=== PATIENT | female | born 2000 | race Caucasian/White ===

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

== ENCOUNTER → 2019-08-13 07:00 | Observation (INO) ==
[2019-08-13 06:10] LABS: Bilirubin,Urine Small (Negative); Blood,Urine Moderate (Negative); Clarity,Urine Turbid (Clear); Color,Urine Orange (Yellow); Glucose,Urine (UA) Normal (Normal); Ketones,Urine 40 mg/dL (Negative); Leukocyte Esterase,Urine Moderate (Negative); Nitrite,Urine Positive (Negative); PH,Urine 6.5 pH Units (5.0-8.0); Protein,Urine 30 mg/dL (Neg-Trace); Specific Gravity,Urine 1.028 (1.010-1.025); Urobilinogen,Urine Normal (Normal)
[2019-08-13 06:12] LABS: Hyaline Casts,Urine Moderate per lpf (None-Few); RBC,Urine 30-50 per hpf (0-3); Squamous Epithelial Cell,Urine Many per lpf (None-Few); WBC,Urine 50-100 per hpf (0-3)
[2019-08-13 06:31] LABS: Bacteria,Urine Many per hpf (None-Few)
== END | disposition home or self-care (01) ==
LOC: 1NENULAB
PROVIDERS: ADMIT Advanced Practice Midwife; ATTEND Advanced Practice Midwife

== ENCOUNTER → 2019-09-10 14:38 | Observation (INO) ==
[2019-09-10 09:14] LABS: Bilirubin,Urine Negative (Negative); Blood,Urine Trace (Negative); Clarity,Urine Cloudy (Clear); Color,Urine Yellow (Yellow); Glucose,Urine (UA) Normal (Normal); Ketones,Urine Negative (Negative); Leukocyte Esterase,Urine Large (Negative); Nitrite,Urine Positive (Negative); Protein,Urine Negative (Neg-Trace); Specific Gravity,Urine 1.019 (1.010-1.025); Urobilinogen,Urine Normal (Normal)
[2019-09-10 09:16] LABS: Bacteria,Urine Many per hpf (None-Few); Hyaline Casts,Urine None Seen per lpf (None-Few); Squamous Epithelial Cell,Urine Many per lpf (None-Few); WBC,Urine 15-30 per hpf (0-3)
[2019-09-10 09:30] LABS: RBC,Urine 0-3 per hpf (0-3)
[2019-09-10 10:20] LABS: Basophils # 0.1 K/mcL (0.0-0.2); Basophils % 0.2 %; Eosinophils # 0.3 K/mcL (0.0-0.6); Eosinophils % 1.2 %; Hematocrit 44.1 % (35.3-44.9); Hemoglobin 14.5 g/dL (11.5-15.4); Immature Granulocytes % 0.7 % (0-4); Lymphocytes # 2.6 K/mcL (0.6-4.6); Lymphocytes % 11.2 %; Mean Corpuscular HGB Conc 32.9 g/dL (31.6-35.5); Mean Corpuscular Hemoglobin 31.1 pg (28.0-33.3); Mean Corpuscular Volume 94.6 fL (83.0-100.0); Mean Platelet Volume 10.5 fL (9.4-12.4); Monocytes # 0.9 K/mcL (0.0-1.3); Monocytes % 3.7 %; Neutrophils # 19.1 K/mcL (1.6-8.9); Platelet Count 380 K/mcL (140-400); Red Blood Count 4.66 M/mcL (3.82-4.97); Red Cell Distribution Width 13.2 % (11.5-14.5)
[2019-09-10 10:28] LABS: Protein/Creatinine Ratio,Urine 0.23 mg/mg (0.00-0.20)
[2019-09-10 10:43] LABS: Alanine Aminotransferase 17 Units/L (7-52); Amylase 37 Units/L (29-103); Aspartate Amino Transferase 15 Units/L (13-39); BUN/Creatinine Ratio 15 (6-26); Blood Urea Nitrogen 7 mg/dL (6-20); Lactate Dehydrogenase 130 Units/L (140-271); Lipase 6 Units/L (11-82); Uric Acid 3.8 mg/dL (2.3-7.6); eGFR For African Americans > 60 (> 60); eGFR For Non-African Americans > 60 (> 60)
[~2019-09-10 14:38] MED LIST changes: +*HR* Promethazine 25 MG/ML VIAL IVP PRN; -Famotidine 20 MG/2 ML VIAL IVP PRN; -Lidocaine 1% 20 ML MDV INFILT PRN; -Naloxone 0.4 MG/ML INJ IVP PRN; +Ringers Solution, Lactated 1,000 ML IVC ONE; +Ringers Solution, Lactated 1,000 ML IVC SCH; +Ringers Solution, Lactated 1,000 ML ONE; +cefTRIAXone 1,000 MG in 0.9 % Sodium Chloride Mini Bag 100 ML IVPB ONE
== END | disposition home or self-care (01) ==
LOC: 1NENULAB
PROVIDERS: ADMIT Advanced Practice Midwife; ATTEND Advanced Practice Midwife

== ENCOUNTER 2019-10-13 07:26 | Inpatient (IN) ==
[2019-10-13] MEDS ORDERED: Metoclopramide 10 MG/2 ML VIAL IVP PRN (07:43)
[2019-10-13] MEDS ORDERED: Naloxone 0.4 MG/ML INJ IVP PRN (07:43)
[2019-10-13] MEDS ORDERED: Ondansetron 4 MG/2 ML VIAL IVP PRN (07:43)
[2019-10-13] MEDS ORDERED: *HR* FentaNYL (PF) 100 MCG/2 ML VIAL IVP PRN (07:43)
[2019-10-13] MEDS ORDERED: Famotidine 20 MG/2 ML VIAL IVP PRN (07:43)
[2019-10-13 09:19] LABS: Basophils % 0.3 %; Eosinophils # 0.3 K/mcL (0.0-0.6); Eosinophils % 2.1 %; Hematocrit 35.4 % (35.3-44.9); Hemoglobin 11.8 g/dL (11.5-15.4); Immature Granulocytes % 0.6 % (0-4); Lymphocytes # 3.2 K/mcL (0.6-4.6); Lymphocytes % 22.5 %; Mean Corpuscular HGB Conc 33.3 g/dL (31.6-35.5); Mean Corpuscular Hemoglobin 31.4 pg (28.0-33.3); Mean Corpuscular Volume 94.1 fL (83.0-100.0); Mean Platelet Volume 10.3 fL (9.4-12.4); Monocytes # 0.6 K/mcL (0.0-1.3); Monocytes % 4.3 %; Neutrophils # 9.8 K/mcL (1.6-8.9); Platelet Count 345 K/mcL (140-400); Red Blood Count 3.76 M/mcL (3.82-4.97); Red Cell Distribution Width 13.2 % (11.5-14.5); Segmented Neutrophils % 70.2 %
[2019-10-13] MEDS ORDERED: miSOPROStoL 25 MCG TABLET PO PRN (09:44)
[2019-10-13] MEDS ORDERED: Oxytocin 20 units/ LR 1000 mL 20 UNIT/1,000 ML BAG IVC SCH ×2 (09:45→22:52)
[2019-10-13 09:46] LABS: Amphetamine Screen,Urine Negative ng/mL (Cutoff=1000); Barbiturate Screen,Urine Negative ng/mL (Cutoff=200); Benzodiazepines Screen,Urine Negative ng/mL (Cutoff=200); Cannabinoid Screen,Urine Positive ng/mL (Cutoff = 50); Cocaine Screen,Urine Negative ng/mL (Cutoff= 300); Opiate Screen,Urine Negative ng/mL (Cutoff=300); Phencyclidine Screen,Urine Negative ng/mL (Cutoff=25)
[2019-10-13 12:34] LABS: Chlamydia Trachomatis DNA Ur NOT DETECTED (Not Detect)
[2019-10-13] MEDS: Ringers Solution, Lactated 1,000 ML IVC SCH ×2 (14:14→15:28)
[2019-10-13] MEDS ORDERED: EPHEDrine 50 MG/ML VIAL IVP PRN (14:28)
[2019-10-13] MEDS ORDERED: Epidural Premix (fent/bupiv) 110 ML EP SCH (14:30)
[2019-10-13] MEDS ORDERED: *HR* Ropivacaine/PF 0.5% 20 ML VIAL ONE (17:05)
[2019-10-13] MEDS ORDERED: 0.9 % Sodium Chloride 1,000 ML ONE (20:25)
[2019-10-13] MEDS ORDERED: Lanolin 7 G OINT...G. TP PRN (22:52)
[2019-10-13] MEDS ORDERED: Rho Immune Globulin 1,500 UNIT SYRINGE IM PRN (22:52)
[2019-10-13] MEDS ORDERED: Benzocaine/Menthol 56 GM AEROSOL SPRAY TP PRN (22:52)
[2019-10-13] MEDS: Ibuprofen 600 MG TABLET PO PRN (22:59)
[2019-10-14] MEDS: Acetaminophen 325 MG TABLET PO PRN ×2 (01:50→13:35)
[2019-10-14] MEDS ORDERED: Prenatal Vit/FA 1 EACH TABLET PO SCH (09:00)
[2019-10-14] MEDS: Ibuprofen 600 MG TABLET PO PRN (09:05)
[2019-10-14 16:02] VITALS: BP 122/78
== END 2019-10-14 21:40 | disposition home or self-care (01) | DRG 806 ==
LOC: 1NENULAB 07:26 → 1NENUOBS 23:59
PROVIDERS: ADMIT Registered Nurse; ATTEND Registered Nurse